=== PATIENT | male | born 1950 | race Caucasian/White ===

== ENCOUNTER 2017-11-10 13:17 | Emergency (ER) | payer OTHER ==
--- NOTE | 2017-11-10 13:40 | CT ---
NONCONTRAST CT HEAD: Date: 11-10-17 History: Left sided weakness. Stroke alert. FINDINGS: There is no evidence of hemorrhage, acute infarction, mass effect, or midline shift. Mild cerebral vo lume loss is present, not unexpected for the patient's age. The ventricular system is normal in size, shape, and position. The visualized paranasal sinuses and mastoid air cells are clear. The calvarial structures are intact. IMPRESSION: No acute intracranial abnormality is demonstrated. POS: [facility]
[2017-11-10 13:44] LABS: #Basophils 0.1 thou/uL (0.0-0.2); #Eosinphils 0.1 thou/uL (0.0-0.7); #Lymphocytes 4.8 thou/uL (1.20-3.40); #Monocytes 0.5 thou/uL (0.11-0.59); #Neutrophils 4.6 thou/uL (1.40-6.50); %Eosinophils 1.3 % (0.0-10.0); %Lymphocytes 47.3 % (21.0-51.0); %Monocytes 4.6 % (0.0-10.0); %Neutrophils 45.8 % (42.0-75.0); Hemoglobin 14.7 g/dL (14.0-18.0); Mean Corpuscular Hemoglobin 27.5 pg (27.0-31.0); Mean Corpuscular Volume 83.4 fl (80.0-94.0); Mean Platelet Volume 8.5 fL (7.4-10.4); Platelet Count 239 thou/uL (130-400); RBC Distribution Width 11.9 % (11.5-14.5); Red Blood Cell (RBC) Count 5.35 mill/uL (4.70-6.10); White Blood Cell (WBC) Count 10.1 thou/uL (4.8-10.8)
[2017-11-10 13:49] LABS: PTT 28.9 SEC (22.9-36.1); Prothrombin Time 12.8 SEC (12.0-14.7)
[2017-11-10 13:56] LABS: ALT (SGPT) 18 U/L (8-55); AST (SGOT) 14 U/L (5-34); Albumin 4.1 g/dL (3.4-4.8); Alkaline Phosphatase 75 U/L (40-150); Anion Gap 16 mmol/L (10-20); BUN (Urea Nitrogen) 15 mg/dL (8.4-25.7); Calc. Creatinine Clearance 0 mL/min (70-130); Calcium 9.5 mg/dL (7.8-10.44); Carbon Dioxide 21 mmol/L (23-31); Chloride 104 mmol/L (98-107); Estimated GFR-MDRD 78; Globulin 3.5 g/dL (2.4-3.5); Glucose 209 mg/dL (80-115); Potassium 3.8 mmol/L (3.5-5.1); Protein, Total 7.6 g/dL (5.8-8.1); Sodium 137 mmol/L (136-145)
[2017-11-10 13:57] LABS: CKMB 2.6 ng/mL (0-6.6); Troponin I 0.014 ng/mL (< 0.028)
--- NOTE | 2017-11-10 14:03 | RAD ---
ONE VIEW CHEST: HISTORY: Left-sided weakness. COMPARISON: None. FINDINGS: Portable upright chest demonstrates atherosclerosis of the aorta. Normal cardiac silhouette. The pu lmonary vessels and hilum are normal. The costophrenic angles are clear. No consolidation or mass. No pneumothorax or osseous abnormalities. IMPRESSION: 1. No acute cardiopulmonary process. 2. Atherosclerosis. POS: [facility]
== END 2017-11-10 14:16 | disposition short-term general hospital (02) ==
LOC: NAV ERS 13:17
DX: I63.9 Cerebral infarction, unspecified (principal); E78.5 Hyperlipidemia, unspecified; I10 Essential (primary) hypertension; E11.9 Type 2 diabetes mellitus without complications
CPT/HCPCS: 36416; 70450; 71045; 80053; 82553; 84484; 85025; 85610; 85730; 93005; 94760